=== PATIENT | female | born 1955 | race Caucasian/White ===

== ENCOUNTER 2021-09-12 13:31 | Observation (INO) | payer OTHER ==
--- OUTSIDE RECORDS SUMMARY | 2021-09-12 13:33 | XMS REPORT | Continuity of Care Document ---
:1955 Author Organization [facility] t Address [address] [place] [address] Care Team Providers Name Role Phone Nurse, Pob Immunization Attending Clinician Unavailable Carmelo Cardenas DO Attending Clinician Problems This patient has no known problems. Allergies, Adverse Reactions, Alerts This patient has no known allergies or adverse reactions. Social History Social Habit Start Date Stop Date Quantity Comments Source Sex Assigned At [birth year] [facility] 00:00:00 00:00:00 Medical Branch Smoking Status Start Date Stop Date Source Unknown if ever smoked [facility] Medications This patient has no known medications. Immunizations Ordered Filled Immunization Date Status Comments Sourc e Immunization Name Name SARS-COV-2 COVID-19 2021-03-07 Completed Unive rs[facility] of [facility] VACCINE 00:00:00 [place] [facility] Procedures Procedure Date / Time Performed Performing Clinician Sourc e SARS-COV-2 COVID-19 2021-03-07 18:02:08 Doctor Unassigned, No [facility] [place] VACCINE,0.5ML,IM Name Medical Branch ([facility]) Encounters Start End Encounter Admission Attending Care Care Encounter Source Date/Time Date/Time Type Type Clinicians Facility Department ID 2021-03-07 2021-03-07 Imm/Inj Nurse, Adc Pob Immunization [facility] [id number] [facility] 12:58:57 12:59:11 Visit Roel Cardenas [id number] ity [place] [id number] [facility] [phone] [facility] dical n[facility] [address] Results This patient has no known results.
[2021-09-12] MEDS ORDERED: MORPHINE 4 MG/ML SYR ONE ×2 (14:30→16:30)
[2021-09-12] MEDS ORDERED: CEFTRIAXONE 1000 MG/VIAL ONE (14:30)
[2021-09-12] MEDS ORDERED: ONDANSETRON 4 MG/2 ML VIAL ONE (14:30)
[2021-09-12] MEDS ORDERED: NA CHLORIDE 0.9% 1,000 ML ONE ×2 (14:31→16:30)
[2021-09-12] MEDS ORDERED: NA CHLORIDE 0.9% 50 ML ONE (14:31)
[2021-09-12 14:33] LABS: Absolute Lymphocytes (CBC) 1.5 K/uL (0.7-4.9); Hematocrit 39.3 % (36.0-45.0); Lymphocytes % 30.1 % (15.3-44.8); RBC Red Blood Cell Count 4.31 M/uL (3.86-4.86)
[2021-09-12 14:34] LABS: Protime INR 1.14
[2021-09-12 14:48] LABS: Albumin 3.9 g/dL (3.4-5.0); Bilirubin Direct 0.1 mg/dL (0-0.2); Bilirubin Total 0.6 mg/dL (0.2-1.0); Magnesium 2.4 mg/dL (1.8-2.4); Potassium 3.6 mmol/L (3.5-5.1); Protein, Total 8.4 g/dL (6.4-8.2); Troponin High Sensitivity 3.9 pg/mL (<58.9)
--- NOTE | 2021-09-12 14:56 | RAD REPORT ---
EXAM DESCRIPTION: RAD - Chest Single View - 09/12/2021 2:43 pm CLINICAL HISTORY: ABDOMINAL DISTENTION COMPARISON: Two view chest January 2014 TECHNIQUE: AP portable chest image was obtained 09/12/2021 2:43 pm . FINDINGS: Lungs are clear. Heart and vasculature are normal. No measurable pleural effusion and no p neumothorax. No acute bony abnormality seen. No acute aortic findings suspected. IMPRESSION: No acute cardiopulmonary process. No significant change from comparison study.
--- NOTE | 2021-09-12 15:21 | RAD REPORT ---
EXAM DESCRIPTION: CT - Abdomen Pelvis W Contrast - 09/12/2021 3:08 pm CLINICAL HISTORY: ABD PAIN COMPARISON: No comparisons TECHNIQUE: Biphasic, helical CT imaging of the abdomen and pelvis was performed following 100 ml non -ionic IV contrast. No oral contrast administered. All CT scans are performed using dose optimization technique as appropriate and may include automated exposure control or mA/KV adjustment according to patient size. FINDINGS: No suspicious findings in the lung bases. The liver, spleen, and pancreas show no suspicious findings. Multiple gallstones are seen but no acut e gallbladder abnormality noted. No biliary tree dilatation. Symmetric renal function is seen with no hydronephrosis or suspicious renal mass. No pyelonephritis o r acute parenchymal process. No bladder abnormalities. No adrenal abnormalities. Enlarged lobulated u terus is present containing multiple densely calcified fibroids, largest measuring 5 cm. No ovarian a cute finding seen. No fallopian tube dilatation. No stomach or small bowel abnormality. No direct or indirect evidence for appendicitis. From cecum th rough descending colon no acute colon process is seen. Proximal sigmoid colon shows short segment of circumferential wall thickening. There is trace amount of stranding in the adjacent fat. A very early diverticulitis is suspected and needs correlation with left lower quadrant symptoms. Rectum and brittany ining portion of the sigmoid are unremarkable. No free air, free fluid or inflammatory stranding. No hernia, mass or bulky lymphadenopathy. No suspicious bony findings. IMPRESSION: Suspected early diverticulitis of the proximal sigmoid colon. Cholelithiasis without acute gallbladder or biliary tree finding.
--- NOTE | 2021-09-12 15:49 | RAD REPORT ---
EXAM DESCRIPTION: US - Abdomen Exam Limited - 09/12/2021 3:40 pm CLINICAL HISTORY: ABD PAIN COMPARISON: Abdomen Pelvis W Contrast dated 09/12/2021 FINDINGS: Multiple 12-15 mm sized mobile gallstones are seen. No measurable quantity of sludge. Ther e is no wall thickening or pericholecystic fluid. No common duct stone or biliary tree dilatation identified. IMPRESSION: Multi stone cholelithiasis without cholecystitis findings or acute biliary finding.
[2021-09-12] MEDS ORDERED: METRONIDAZOLE 500mg IVPB 500 MG/100 ML BAG IV ONE (15:56)
[2021-09-12] MEDS ORDERED: CIPROFLOXACIN 400mg IV 400 MG/200 ML BAG IV ONE (15:56)
--- NOTE | 2021-09-12 16:05 | ER ---
Nurse's Notes [facility] Name: Fior Flynn Age: 66 yrs Sex: Female : 1955 Arrival Date: 09/12/2021 Time: 13:36 Bed Ultrasound Private MD: Lalo Méndez Diagnosis: Abdominal tenderness;Diarrhea, unspecified;Nausea;Other cholelithiasis without obstruction;Diverticulitis of large intestine without perforation or abscess without bleeding Presentation: 09/12 13:48 Chief complaint: Patient states: i have severe abdminal pain that started 4 am tw2 . my stomach was bloated and its pretty severe. tender to the touch. +D. Coronavirus screen: At this time, the client does not indicate any symptoms associated with coronavirus-19. Ebola Screen: Patient denies travel to an Ebola-affected area in the 21 days before illness onset. Initial Sepsis Screen: Does the patient meet any 2 criteria? No. Patient's initial sepsis screen is negative. Does the patient have a suspected source of infection? No. Patient's initial sepsis screen is negative. Risk Assessment: Do you want to hurt yourself or someone else? Patient reports no desire to harm self or others. Onset of symptoms was September 12, 2021. 13:48 Method Of Arrival: Ambulatory tw2 13:48 Acuity: ARIA 3 tw2 Triage Assessment: 13:49 General: Appears in no apparent distress. uncomfortable, well groomed, Behavior is tw2 calm, cooperative, appropriate for age. Pain: Complains of pain in right lower quadrant and left lower quadrant. GI: Reports upper abdominal pain, bloating, diarrhea. Historical: - Allergies: 13:49 No Known Allergies; tw2 - Home Meds: 13:49 Synthroid 50 mcg Oral tab 1 tab once daily [Active]; Lexapro 20 mg Oral tab 1 tab once tw2 daily [Active]; - PMHx: 13:49 Hypothyroidism; tw2 - PSHx: 13:49 section; ectopic ; Appendectomy; tw2 - Immunization history:: Client reports receiving the 2nd dose of the Covid vaccine. - Social history:: Smoking status: Patient denies any tobacco usage or history of. Patient uses alcohol, occasionally. Screenin:15 Abuse screen: Denies threats or abuse. Denies injuries from another. Nutritional jl7 screening: No deficits noted. Tuberculosis screening: No symptoms or risk factors identified. Fall Risk IV access (20 points). Total Beck Fall Scale indicates No Risk (0-24 pts). Assessment: 14:15 General: Appears in no apparent distress. uncomfortable, Behavior is calm, cooperative, jl7 appropriate for age. Pain: Complains of pain in right lower quadrant and left lower quadrant Pain currently is 8 out of 10 on a pain scale. Neuro: Level of Consciousness is awake, alert, obeys commands, Oriented to person, place, time, situation. Cardiovascular: Patient's skin is warm and dry. Respiratory: Airway is patent Respiratory effort is even, unlabored, Respiratory pattern is regular, symmetrical. GI: Abdomen is non-distended, Abdomen is tender to palpation in right lower quadrant and left lower quadrant. : No signs and/or symptoms were reported regarding the genitourinary system. Derm: Skin is pink, warm \T\ dry. 15:15 Reassessment: Patient appears in no apparent distress at this time. pt reports jl7 decreased pain. 16:00 Reassessment: Patient appears in no apparent distress at this time. No changes from jl7 previously documented assessment. Patient and/or family updated on plan of care and expected duration. Pain level reassessed. Patient is alert, oriented x 3, equal unlabored respirations, skin warm/dry/pink. 17:00 Reassessment: Patient appears in no apparent distress at this time. No changes from jl7 previously documented assessment. Patient and/or family updated on plan of care and expected duration. Pain level reassessed. Patient is alert, oriented x 3, equal unlabored respirations, skin warm/dry/pink. 18:00 Reassessment: Patient appears in no apparent distress at this time. Patient and/or jl7 family updated on plan of care and expected duration. Pain level reassessed. Patient is alert, oriented x 3, equal unlabored respirations, skin warm/dry/pink. Patient states feeling better. Patient states symptoms have improved. Vital Signs: 13:48 BP 140 / 91; Pulse 89; Resp 17; Temp 98.5(TE); Pulse Ox 100% on R/A; Weight 71.21 kg tw2 (R); Height 5 ft. 8 in. (172.72 cm); Pain 8/10; 15:00 BP 147 / 104; Pulse 63; Resp 15; Pulse Ox 97% ; jl7 16:40 BP 175 / 93; Pulse 64; Resp 15; Pulse Ox 100% ; jl7 17:22 BP 167 / 92; Pulse 58; Resp 15; Pulse Ox 100% ; jl7 18:17 BP 157 / 90; Pulse 57; Resp 15; Pulse Ox 100% ; jl7 13:48 Body Mass Index 23.87 (71.21 kg, 172.72 cm) tw2 ED Course: 13:36 Patient arrived in ED. am2 13:36 Lalo Méndez MD is Private Physician. am2 13:49 Triage completed. tw2 13:51 Arm band placed on. tw2 13:52 Kuldeep Delgado MD is Attending Physician. ayesha 14:02 Mary Gregg, BEN is Primary Nurse. jl7 14:15 Patient has correct armband on for positive identification. Placed in gown. Bed in low jl7 position. Call light in reach. Side rails up X 1. nurse monitoring on. Pulse ox on. NIBP on. Warm blanket given. 14:20 Initial lab(s) drawn, by sd, sent to lab. EKG done, by ED staff, reviewed by Kuldeep Delgado MD. Inserted saline lock: 20 gauge in left forearm, using aseptic technique. Blood collected. 14:45 XRAY Chest (1 view) In Process Unspecified. EDMS 15:10 CT Abd/Pelvis - IV Contrast Only In Process Unspecified. EDMS 15:41 US Abdomen Limited In Process Unspecified. EDMS 15:55 Lalo Méndez MD is Hospitalizing Provider. [facility] 16:30 COVID swab sent to lab. jl7 16:43 Urine collected: clean catch specimen, clear. jl7 17:22 No provider procedures requiring assistance completed. Patient admitted, IV remains in jl7 place. intact, No redness/swelling at site. Administered Medications: 14:45 Drug: NS 0.9% 1000 ml Route: IV; Rate: 1 bolus; Site: left forearm; jl7 16:00 Follow up: Response: No adverse reaction; IV Status: Completed infusion; IV Intake: jl7 1000ml 14:50 Drug: morphine 4 mg Route: IVP; Site: left forearm; jl7 15:15 Follow up: Response: No adverse reaction; Pain is decreased jl7 14:50 Drug: Zofran (Ondansetron) 4 mg Route: IVP; Site: left forearm; jl7 15:15 Follow up: Response: No adverse reaction; Nausea is decreased jl7 14:55 Drug: Rocephin (cefTRIAXone) 2 grams Route: IV; Rate: per protocol; Site: left forearm; jl7 15:15 Follow up: Response: No adverse reaction; IV Status: Completed infusion; IV Intake: 82lhab2 16:00 Drug: Flagyl (metroNIDAZOLE) 500 mg Volume: 100 ml; Route: IVPB; Rate: 200 ml/hr; jl7 Infused Over: 30 mins; Site: left forearm; 16:30 Follow up: Response: No adverse reaction; IV Status: Completed infusion; IV Intake: jl7 100ml 16:32 Drug: morphine 4 mg Route: IVP; Site: left forearm; jl7 17:00 Follow up: Response: No adverse reaction; Pain is decreased jl7 16:38 Drug: Cipro (ciprofloxacin) 400 mg Volume: 200 ml; Route: IVPB; Infused Over: 60 mins; jl7 Site: left forearm; 17:38 Follow up: Response: No adverse reaction; IV Status: Completed infusion; IV Intake: jl7 200ml 17:00 Drug: NS 0.9% 1000 ml Route: IV; Rate: 125 ml/hr; Site: left forearm; jl7 17:19 Follow up: Response: No adverse reaction; IV Status: Infusion continued upon admission jl7 Intake: 15:15 IV: 50ml; Total: 50ml. jl7 16:00 IV: 1000ml; Total: 1050ml. jl7 16:30 IV: 100ml; Total: 1150ml. jl7 17:38 IV: 200ml; Total: 1350ml. jl7 Outcome: 16:04 Decision to Hospitalize by Provider. ayesha 18:18 Admitted to Tele accompanied by tech, via wheelchair, room 230, with chart, Report jl7 called to BEN Wang 18:18 Condition: stable 18:18 Discharge instructions given to patient, family, Instructed on the need for admit, Demonstrated understanding of instructions. 18:41 Patient left the ED. jl7 Signatures: Dispatcher [employer] Kuldeep Wade MD MD cha Wise, Tara, RN RN tw2 Mary Gregg RN RN jl7 Zohra Moore am2
--- NOTE | 2021-09-12 16:05 | EDPHYS ---
Physician Documentation [facility] Name: Fior Flynn Age: 66 yrs Sex: Female : 1955 Arrival Date: 09/12/2021 Time: 13:36 Bed Ultrasound Private MD: Lalo Méndez ED Physician Kuldeep Delgado HPI: 09/12 14:44 This 66 yrs old Female presents to ER via Ambulatory with complaints of ayesha Abdominal Pain, Diarrhea. Historical: - Allergies: 13:49 No Known Allergies; tw2 - Home Meds: 13:49 Synthroid 50 mcg Oral tab 1 tab once daily [Active]; Lexapro 20 mg Oral tab 1 tab once tw2 daily [Active]; - PMHx: 13:49 Hypothyroidism; tw2 - PSHx: 13:49 section; ectopic ; Appendectomy; tw2 - Immunization history:: Client reports receiving the 2nd dose of the Covid vaccine. - Social history:: Smoking status: Patient denies any tobacco usage or history of. Patient uses alcohol, occasionally. ROS: 14:46 Constitutional: Negative for fever, chills, and weight loss, Eyes: Negative for injury, ayesha pain, redness, and discharge, ENT: Negative for injury, pain, and discharge, Neck: Negative for injury, pain, and swelling, Cardiovascular: Negative for chest pain, palpitations, and edema, Respiratory: Negative for shortness of breath, cough, wheezing, and pleuritic chest pain, Back: Negative for injury and pain, : Negative for injury, bleeding, discharge, and swelling, MS/Extremity: Negative for injury and deformity, Skin: Negative for injury, rash, and discoloration, Neuro: Negative for headache, weakness, numbness, tingling, and seizure, Psych: Negative for depression, anxiety, suicide ideation, homicidal ideation, and hallucinations, Allergy/Immunology: Negative for hives, rash, and allergies, Endocrine: Negative for neck swelling, polydipsia, polyuria, polyphagia, and marked weight changes, Hematologic/Lymphatic: Negative for swollen nodes, abnormal bleeding, and unusual bruising. 14:46 Abdomen/GI: Positive for abdominal pain, nausea, diarrhea. Exam: 14:46 Constitutional: This is a well developed, well nourished patient who is awake, alert, ayesha and in no acute distress. Head/Face: Normocephalic, atraumatic. Eyes: Pupils equal round and reactive to light, extra-ocular motions intact. Lids and lashes normal. Conjunctiva and sclera are non-icteric and not injected. Cornea within normal limits. Periorbital areas with no swelling, redness, or edema. ENT: Nares patent. No nasal discharge, no septal abnormalities noted. Tympanic membranes are normal and external auditory canals are clear. Oropharynx with no redness, swelling, or masses, exudates, or evidence of obstruction, uvula midline. Mucous membranes moist. Neck: Trachea midline, no thyromegaly or masses palpated, and no cervical lymphadenopathy. Supple, full range of motion without nuchal rigidity, or vertebral point tenderness. No Meningismus. Chest/axilla: Normal chest wall appearance and motion. Nontender with no deformity. No lesions are appreciated. Cardiovascular: Regular rate and rhythm with a normal S1 and S2. No gallops, murmurs, or rubs. Normal PMI, no JVD. No pulse deficits. Respiratory: Lungs have equal breath sounds bilaterally, clear to auscultation and percussion. No rales, rhonchi or wheezes noted. No increased work of breathing, no retractions or nasal flaring. Back: No spinal tenderness. No costovertebral tenderness. Full range of motion. Female : Normal external genitalia. Skin: Warm, dry with normal turgor. Normal color with no rashes, no lesions, and no evidence of cellulitis. MS/ Extremity: Pulses equal, no cyanosis. Neurovascular intact. Full, normal range of motion. Neuro: Awake and alert, GCS 15, oriented to person, place, time, and situation. Cranial nerves II-XII grossly intact. Motor strength 5/5 in all extremities. Sensory grossly intact. Cerebellar exam normal. Normal gait. Psych: Awake, alert, with orientation to person, place and time. Behavior, mood, and affect are within normal limits. 14:46 Abdomen/GI: Inspection: abdomen appears normal, Bowel sounds: normal, Palpation: mild abdominal tenderness, Liver: no appreciated palpable abnormalities, Hernia: not appreciated. 14:54 ECG was reviewed by the Attending Physician. [facility] Vital Signs: 13:48 BP 140 / 91; Pulse 89; Resp 17; Temp 98.5(TE); Pulse Ox 100% on R/A; Weight 71.21 kg tw2 (R); Height 5 ft. 8 in. (172.72 cm); Pain 8/10; 15:00 BP 147 / 104; Pulse 63; Resp 15; Pulse Ox 97% ; jl7 16:40 BP 175 / 93; Pulse 64; Resp 15; Pulse Ox 100% ; jl7 17:22 BP 167 / 92; Pulse 58; Resp 15; Pulse Ox 100% ; jl7 18:17 BP 157 / 90; Pulse 57; Resp 15; Pulse Ox 100% ; jl7 13:48 Body Mass Index 23.87 (71.21 kg, 172.72 cm) tw2 MDM: 13:52 Patient medically screened. [facility] 14:51 Differential diagnosis: Nonspecific abd pain, gastritis, cholecystitis, pancreatitis, ayesha diverticulitis, viral gastroenteritis, gastroenteritis. Data reviewed: vital signs, nurses notes, lab test result(s), EKG, radiologic studies, CT scan, plain films, ultrasound. Data interpreted: monitor tech: rate is 89 beats/min, rhythm is regular, Pulse oximetry: on room air is 100 %. Test interpretation: by ED physician or midlevel provider: ECG, plain radiologic studies. Counseling: I had a detailed discussion with the patient and/or guardian regarding: the historical points, exam findings, and any diagnostic results supporting the discharge/admit diagnosis, lab results, radiology results. 09/12 13:54 Order name: Basic Metabolic Panel; Complete Time: 15:21 [facility] 09/12 13:54 Order name: CBC with Diff; Complete Time: 15:21 [facility] 09/12 13:54 Order name: LFT's; Complete Time: 15:21 [facility] 09/12 13:54 Order name: Magnesium; Complete Time: 15:21 [facility] 09/12 13:54 Order name: NT PRO-BNP; Complete Time: 15:21 [facility] 09/12 13:54 Order name: PT-INR; Complete Time: 15:21 [facility] 09/12 13:54 Order name: Troponin HS; Complete Time: 15:21 [facility] 09/12 13:54 Order name: Lipase; Complete Time: 15:21 [facility] 09/12 13:54 Order name: Lactate; Complete Time: 15:21 [facility] 09/12 15:22 Order name: Fecal Leukocyte Stain 09/12 15:22 Order name: Occult Blood [facility] 09/12 15:22 Order name: Stool Culture [facility] 09/12 16:05 Order name: COVID-19 SARS RT PCR (Document "Date of Onset" if Symptomatic) 09/12 18:31 Order name: Urine Dipstick-Ancillary [facility] 09/12 13:54 Order name: XRAY Chest (1 view); Complete Time: 15:21 [facility] 09/12 13:54 Order name: EKG; Complete Time: 13:55 [facility] 09/12 13:54 Order name: Cardiac monitoring; Complete Time: 14:07 [facility] 09/12 13:54 Order name: EKG - Nurse/Tech; Complete Time: 14:07 [facility] 09/12 13:54 Order name: IV Saline Lock; Complete Time: 14:30 [facility] 09/12 13:54 Order name: Labs collected and sent; Complete Time: 14:30 [facility] 09/12 13:54 Order name: CT Abd/Pelvis - IV Contrast Only; Complete Time: 15:36 [facility] 09/12 14:45 Order name: US Abdomen Limited [facility] 09/12 13:54 Order name: O2 Per Protocol; Complete Time: 14:29 [facility] 09/12 13:54 Order name: O2 Sat Monitoring; Complete Time: 14:29 [facility] 09/12 13:54 Order name: Urine Dipstick-Ancillary (obtain specimen); Complete Time: 18:31 [facility] EC:54 Rate is 72 beats/min. Rhythm is regular. QRS [place] is Normal. [place] interval is normal. QRS ayesha interval is normal. QT interval is normal. No Q waves. T waves are Normal. No ST changes noted. Clinical impression: NSR w/ Non-specific ST/T Changes and No evidence of ischemia. Interpreted by me. Reviewed by me. Administered Medications: 14:45 Drug: NS 0.9% 1000 ml Route: IV; Rate: 1 bolus; Site: left forearm; jl7 16:00 Follow up: Response: No adverse reaction; IV Status: Completed infusion; IV Intake: jl7 1000ml 14:50 Drug: morphine 4 mg Route: IVP; Site: left forearm; jl7 15:15 Follow up: Response: No adverse reaction; Pain is decreased jl7 14:50 Drug: Zofran (Ondansetron) 4 mg Route: IVP; Site: left forearm; jl7 15:15 Follow up: Response: No adverse reaction; Nausea is decreased jl7 14:55 Drug: Rocephin (cefTRIAXone) 2 grams Route: IV; Rate: per protocol; Site: left forearm; jl7 15:15 Follow up: Response: No adverse reaction; IV Status: Completed infusion; IV Intake: [id number] 16:00 Drug: Flagyl (metroNIDAZOLE) 500 mg Volume: 100 ml; Route: IVPB; Rate: 200 ml/hr; jl7 Infused Over: 30 mins; Site: left forearm; 16:30 Follow up: Response: No adverse reaction; IV Status: Completed infusion; IV Intake: jl7 100ml 16:32 Drug: morphine 4 mg Route: IVP; Site: left forearm; jl7 17:00 Follow up: Response: No adverse reaction; Pain is decreased jl7 16:38 Drug: Cipro (ciprofloxacin) 400 mg Volume: 200 ml; Route: IVPB; Infused Over: 60 mins; jl7 Site: left forearm; 17:38 Follow up: Response: No adverse reaction; IV Status: Completed infusion; IV Intake: jl7 200ml 17:00 Drug: NS 0.9% 1000 ml Route: IV; Rate: 125 ml/hr; Site: left forearm; jl7 17:19 Follow up: Response: No adverse reaction; IV Status: Infusion continued upon admission jl7 Disposition Summary: 09/12/21 16:04 Hospitalization Ordered Hospitalization Status: Observation ayesha Provider: Lalo Méndez cha [facility] ayesha Condition: Fair ayesha Problem: new ayesha Symptoms: have improved ayesha Bed/Room Type: Standard ayesha Room Assignment: 230(09/12/21 17:41) bd Diagnosis - Abdominal tenderness ayesha - Diarrhea, unspecified ayesha - Nausea ayesha - Other cholelithiasis without obstruction ayesha - Diverticulitis of large intestine without perforation or abscess without bleeding ayesha Forms: - Medication Reconciliation Form ayesha - SBAR form ayesha Signatures: Dispatcher [employer] EDMS Merlyn Alba Diana, RN RN Kuldeep Dave MD MD cha Wise, Tara RN RN tw2 Mary Gregg RN RN jl7 Corrections: (The following items were deleted from the chart) 17:28 16:04 ayesha dw 17:28 17:28 218 dw bd 17:41 17:28 218 bd bd
[2021-09-12 18:30] LABS: Urine Blood Negative (Negative); Urine Glucose Negative (Negative); Urine Protein Negative (Negative); Urine Specific Gravity <=1.005 (1.005-1.030)
[2021-09-12 19:37] VITALS: O2SAT 100
[2021-09-12] MEDS ORDERED: MORPHINE 4 MG/ML SYR IV PRN (19:51)
[2021-09-12] MEDS ORDERED: ONDANSETRON 4 MG/2 ML VIAL IV PRN (19:51)
[2021-09-12] MEDS: METRONIDAZOLE 500mg IVPB 500 MG/100 ML BAG IV SCH (19:51)
[2021-09-12] MEDS ORDERED: ACETAMINOPHEN 500 MG TAB PO PRN (19:51)
[2021-09-12 23:00] VITALS: BMI 23.7
[2021-09-12] MEDS: D5 0.45 NS 1,000 ML IV SCH (23:07)
[2021-09-12] MEDS: FAMOTIDINE 20 MG/2 ML VIAL IV SCH (23:12)
[2021-09-13] MEDS: METRONIDAZOLE 500mg IVPB 500 MG/100 ML BAG IV SCH ×3 (00:32→11:20)
[2021-09-13] MEDS: CIPROFLOXACIN 400mg IV 400 MG/200 ML BAG IV SCH ×2 (03:48→15:14)
[2021-09-13 05:23] LABS: Absolute Lymphocytes (CBC) 1.9 K/uL (0.7-4.9); Hematocrit 32.6 % (36.0-45.0); Lymphocytes % 40.5 % (15.3-44.8); MPV 8.5 fL (7.6-11.3); RBC Red Blood Cell Count 3.59 M/uL (3.86-4.86)
[2021-09-13 05:49] LABS: ALT/SGPT 15 U/L (12-78); AST/SGOT 11 U/L (15-37); Albumin 2.9 g/dL (3.4-5.0); Alkaline Phosphatase 62 U/L (45-117); BUN Blood Urea Nitrogen 7 mg/dL (7-18); Bicarbonate 27 mmol/L (21-32); Bilirubin Total 0.4 mg/dL (0.2-1.0); Glucose Level 123 mg/dL (74-106); Lipase 96 U/L (73-393); Potassium 3.5 mmol/L (3.5-5.1); Protein, Total 6.5 g/dL (6.4-8.2); Sodium Level 138 mmol/L (136-145)
[2021-09-13 05:51] LABS: Bilirubin Direct < 0.1 mg/dL (0-0.2)
[2021-09-13] MEDS ORDERED: PNEUMOCOCCAL VACCINE 0.5 ML IMVAC ONE (08:00)
[2021-09-13] MEDS ORDERED: INFLUENZA VACCINE (for 6+ mo) 0.5 ML DOSE IMVAC ONE (08:00)
[2021-09-13] MEDS: FAMOTIDINE 20 MG/2 ML VIAL IV SCH (09:18)
[2021-09-13] MEDS: D5 0.45 NS 1,000 ML IV SCH (09:23)
--- NOTE | 2021-09-13 12:35 | EKG ---
Test Date: 2021-09-12 Test Time: 14:02:31 Auto Dealer: AKSHAT MEASUREMENT RESULTS: Intervals: Rate: 72 KS: 162 QRSD: 76 QT: 380 QTc: 416 [place]: P: 42 KS: 162 QRS: 27 T: 15 INTERPRETIVE STATEMENTS: Normal sinus rhythm Anteroseptal infarct, age undetermined Abnormal ECG No previous ECG available for comparison Electronically Signed On 09-13-21 12:33:18 CDT by Hi Cordero
[2021-09-13 16:41] VITALS: BP 135/58; TEMP 99.1
--- NOTE | 2021-09-13 20:57 | PN ---
24-hour short term stay. The patient presented to the emergency room following a three and a half day period of abdominal pain , distention, nausea, vomiting, and diarrhea. Office consultation suggested the ER for CAT scan, the possibility of diverticulitis and the fact this was brought out on her CAT scan. She was quite dry, started on IV fluids, Flagyl, Cipro, and Zofran. Showed marked improvement in 24 hours. Tolerated liquids after being n.p.o. Lab work was stable. Vital signs were stable. On the other fact, it was gallbladder with stones; however, she states she has no GI symptoms and eats what she wants, so this will be addressed at a later date. She felt well enough to be discharged, gradually increasing her l iquids to soft diet consisting of Pedialyte and/or Gatorade as her is undergoing some cancer treatments in [place] in the morning. She will follow up with me next week. Final Diagnoses: Acute diverticulitis, dehydration, cholelithiasis. HR/MODL Voice ID: [id number] Report ID: [id number]
== END 2021-09-13 17:30 | disposition home or self-care (01) ==
LOC: ER 13:31 → ERHOLD 16:08 → 2ND 18:13
PROVIDERS: ADMIT Family Medicine; ATTEND Family Medicine
DX: K57.92 Diverticulitis of intestine, part unspecified, without perforation or abscess without bleeding (principal); E86.0 Dehydration; K80.20 Calculus of gallbladder without cholecystitis without obstruction; E03.9 Hypothyroidism, unspecified; Z20.822 Contact with and (suspected) exposure to COVID-19
CPT/HCPCS: 96365; 96367; 96361; 93005; 85025 ×2; 80048 ×2; 36415; 83735; 85610; 80076 ×2; 83605; 81003; 84484; 83690 ×2; 83880; 74177; 71045; 76705; 96375; 99285; U0003; Q9967; J7799 ×2; J7030 ×2; J2405; J0744 ×3; G0378 ×2

== ENCOUNTER 2023-02-04 05:12 | Emergency (ER) | payer OTHER ==
[2023-02-04] MEDS ORDERED: PROMETH/COD 6.25/10MG SYRUP 5ML ONE (06:20)
[2023-02-04] MEDS ORDERED: ACETAMINOPHEN 500 MG TAB ONE (06:26)
--- NOTE | 2023-02-04 07:40 | ER ---
Nurse's Notes [facility] Name: Fior Flynn Age: 67 yrs Sex: Female : 1955 Arrival Date: 02/04/2023 Time: 05:12 Bed 7 Private MD: Diagnosis: COVID-19 Presentation: 02/04 05:28 Chief complaint: Patient states: nonproductive cough, congestion, headache and fever of pf1 highest temp of 103.3F,onset 3 days. Patient stated did an at home test for Covid that was negative. Patient stated has been alternating tylenol and ibuprofen at home. 05:28 Coronavirus screen: Vaccine status: Patient reports receiving the 2nd dose of the covid pf1 vaccine. 4 doses of Moderna Client denies travel out of the [place] in the last 14 days. Coronavirus screen: Client presents with at least one sign or symptom that may indicate coronavirus-19. Standard/surgical mask placed on the client. Ebola Screen: Patient negative for fever greater than or equal to 101.5 degrees Fahrenheit, and additional compatible Ebola Virus Disease symptoms. Initial Sepsis Screen: Does the patient meet any 2 criteria? No. Patient's initial sepsis screen is negative. Does the patient have a suspected source of infection? No. Patient's initial sepsis screen is negative. Risk Assessment: Do you want to hurt yourself or someone else? Patient reports no desire to harm self or others. 05:28 Method Of Arrival: Ambulatory pf1 05:28 Acuity: ARIA 3 pf1 06:27 Onset of symptoms was January 31, 2023. [facility] Triage Assessment: 06:26 General: Appears in no apparent distress. uncomfortable, Behavior is calm, cooperative. 7 Historical: - Allergies: 05:50 No Known Allergies; pf1 - PMHx: 05:50 Hypothyroidism; Anxiety; gallstones; pf1 - PSHx: 05:50 Appendectomy; section; ectopic ; pf1 - Immunization history:: Adult Immunizations up to date, Last tetanus immunization: > 10 years ago Flu vaccine is up to date. - Social history:: Smoking status: Patient denies any tobacco usage or history of. Patient uses alcohol, occasionally. Patient/guardian denies using street drugs. Screenin:26 [facility] ED Fall Risk Assessment (Adult) History of falling in the last 3 months, jw7 including since admission No falls in past 3 months (0 pts) Score/Fall Risk Level 0 - 2 = Low Risk. Abuse screen: Denies threats or abuse. Denies injuries from another. Nutritional screening: No deficits noted. Tuberculosis screening: No symptoms or risk factors identified. Assessment: 06:23 Reassessment: Patient appears in no apparent distress at this time. Patient and/or jw7 family updated on plan of care and expected duration. Pain level reassessed. Patient is alert, oriented x 3, equal unlabored respirations, skin warm/dry/pink. Pain: Denies pain. Vital Signs: 05:28 BP 155 / 86; Pulse 90; Resp 18; Temp 100.4(O); Pulse Ox 98% on R/A; Weight 72.57 kg; pf1 Height 5 ft. 7 in. ; 05:30 BP 140 / 89; Pulse 88; Resp 19 S; Pulse Ox 97% on R/A; jw7 06:00 BP 148 / 79; Pulse 97; Resp 18 S; Pulse Ox 95% on R/A; jw7 06:26 Temp 99.7; jw7 07:11 BP 130 / 79; Pulse 78; Resp 18; Pulse Ox 95% ; ko1 05:28 Body Mass Index 25.06 (72.57 kg, 170.18 cm) pf1 ED Course: 05:20 Patient arrived in ED. kj1 05:28 Star Awan, RN is Primary Nurse. as6 05:28 Judit Rothman MD is Attending Physician. sd2 05:50 Triage completed. pf1 06:13 RSV Sent. jw7 06:13 Flu Sent. jw7 06:13 SARS-COV-2 RT PCR Sent. jw7 06:26 Patient has correct armband on for positive identification. Bed in low position. Call jw7 light in reach. Side rails up X 1. 06:27 Arm band placed on. jw7 07:20 Attending Physician role handed off by Judit Rothman MD sp3 07:20 Saud Gonzalez MD is Attending Physician. sp3 07:49 No provider procedures requiring assistance completed. Patient did not have IV access ko1 during this emergency room visit. 07:49 Provided Education on: NA. ko1 Administered Medications: 06:22 Drug: Acetaminophen PO 1000 mg Route: PO; jw7 06:22 Drug: Promethazine-Codeine PO Liquid (6.25mg - 10mg / 5mL) 5 ml Route: PO; jw7 Medication: 07:49 VIS not applicable for this client. ko1 Outcome: 07:40 Discharge ordered by . sp3 07:49 Discharged to home ambulatory. ko1 07:49 Condition: good 07:49 Discharge instructions given to patient, Instructed on discharge instructions, follow up and referral plans. Demonstrated understanding of instructions, follow-up care. 07:50 Patient left the ED. ko1 Signatures: Christina Roque kj1 Saud Gonzalez MD MD sp3 Star Awan RN RN as6 Analy Hendricks RN RN jw7 Judit Rothman MD MD sd2 Ira Benitez RN RN ko1 Florencia Barajas RN RN pf1
--- NOTE | 2023-02-04 07:40 | EDPHYS ---
Physician Documentation [facility] Name: Fior Flynn Age: 67 yrs Sex: Female : 1955 Arrival Date: 02/04/2023 Time: 05:12 Bed 7 Private MD: ED Physician Saud Gonzalez HPI: 02/04 07:37 This 67 yrs old Female presents to ER via Ambulatory with complaints of Fever, Flu sp3 Symptoms. 07:37 67-year-old female with history of anxiety, gallstones, hypothyroidism comes in to the 3 ED with several days of subjective fever, flu symptoms, body aches. Review of systems negative for any other symptoms including headache, chest pain, shortness of breath, abdominal pain, nausea, vomiting, diarrhea, rash, known sick contacts, travel history, or any other signs or symptoms at this time.. Historical: - Allergies: 05:50 No Known Allergies; pf1 - PMHx: 05:50 Hypothyroidism; Anxiety; gallstones; pf1 - PSHx: 05:50 Appendectomy; section; ectopic ; pf1 - Immunization history:: Adult Immunizations up to date, Last tetanus immunization: > 10 years ago Flu vaccine is up to date. - Social history:: Smoking status: Patient denies any tobacco usage or history of. Patient uses alcohol, occasionally. Patient/guardian denies using street drugs. ROS: 07:37 Eyes: Negative for injury, pain, redness, and discharge, Neck: Negative for injury, sp3 pain, and swelling, Cardiovascular: Negative for chest pain, palpitations, and edema, Respiratory: Negative for shortness of breath, cough, wheezing, and pleuritic chest pain, Abdomen/GI: Negative for abdominal pain, nausea, vomiting, diarrhea, and constipation, Back: Negative for injury and pain, Skin: Negative for injury, rash, and discoloration, Neuro: Negative for headache, weakness, numbness, tingling, and seizure. 07:37 All other systems are negative. Exam: 07:38 Constitutional: This is a well developed, well nourished patient who is awake, alert, sp3 and in no acute distress. Head/Face: Normocephalic, atraumatic. Eyes: Pupils equal round and reactive to light, extra-ocular motions intact. Lids and lashes normal. Conjunctiva and sclera are non-icteric and not injected. Cornea within normal limits. Periorbital areas with no swelling, redness, or edema. ENT: Nares patent. No nasal discharge, no septal abnormalities noted. External auditory canals are clear. Oropharynx with no redness, swelling, or masses, exudates, or evidence of obstruction, uvula midline. Mucous membranes moist. Neck: Trachea midline, no thyromegaly or masses palpated, and no cervical lymphadenopathy. Supple, full range of motion without nuchal rigidity, or vertebral point tenderness. No Meningismus. Chest/axilla: Normal chest wall appearance and motion. Nontender with no deformity. No lesions are appreciated. Cardiovascular: Regular rate and rhythm with a normal S1 and S2. No gallops, murmurs, or rubs. Normal PMI, no JVD. No pulse deficits. Respiratory: Lungs have equal breath sounds bilaterally, clear to auscultation and percussion. No rales, rhonchi or wheezes noted. No increased work of breathing, no retractions or nasal flaring. MS/ Extremity: Pulses equal, no cyanosis. Neurovascular intact. Full, normal range of motion. Neuro: Awake and alert, GCS 15, oriented to person, place, time, and situation. Cranial nerves II-XII grossly intact. Motor strength 5/5 in all extremities. Sensory grossly intact. Cerebellar exam normal. Normal gait. Psych: Awake, alert, with orientation to person, place and time. Behavior, mood, and affect are within normal limits. Vital Signs: 05:28 BP 155 / 86; Pulse 90; Resp 18; Temp 100.4(O); Pulse Ox 98% on R/A; Weight 72.57 kg; pf1 Height 5 ft. 7 in. ; 05:30 BP 140 / 89; Pulse 88; Resp 19 S; Pulse Ox 97% on R/A; jw7 06:00 BP 148 / 79; Pulse 97; Resp 18 S; Pulse Ox 95% on R/A; jw7 06:26 Temp 99.7; jw7 07:11 BP 130 / 79; Pulse 78; Resp 18; Pulse Ox 95% ; ko1 05:28 Body Mass Index 25.06 (72.57 kg, 170.18 cm) pf1 MDM: 05:28 Patient medically screened. sd2 07:38 Data reviewed: vital signs, nurses notes, lab test result(s). ED course: Differential sp3 diagnosis is broad and includes viral syndrome, COVID-19, influenza, among others. Vital signs are normal and patient is in no acute distress. Work-up demonstrates positive COVID-19 and negative other swabs therefore we will treat conservatively.. 02/04 05:50 Order name: SARS-COV-2 RT PCR sd2 02/04 05:50 Order name: Flu sd2 02/04 05:50 Order name: RSV sd2 Administered Medications: 06:22 Drug: Acetaminophen PO 1000 mg Route: PO; jw7 06:22 Drug: Promethazine-Codeine PO Liquid (6.25mg - 10mg / 5mL) 5 ml Route: PO; jw7 Disposition Summary: 02/04/23 07:40 Discharge Ordered Location: Home sp3 Condition: Stable sp3 Diagnosis - COVID-19 sp3 Followup: sp3 - With: Private Physician - When: Upon discharge from the Emergency Department - Reason: Continuance of care Discharge Instructions: - Discharge Summary Sheet sp3 - COVID-19 sp3 Forms: - Medication Reconciliation Form sp3 - Thank You Letter sp3 - Antibiotic Education sp3 - Prescription Opioid Use sp3 - Patient Portal Instructions sp3 - Leadership Thank You Letter sp3 Signatures: Dispatcher [employer] EDSaud Esquivel MD MD sp3 Analy Hendricks, RN RN jw7 Judit Rothman MD MD sd2 Florencia Barajas RN RN pf1
[2023-02-04 08:10] VITALS: O2SAT 95
[2023-02-04 08:11] VITALS: TEMP 99.7
[2023-02-04 08:12] VITALS: BP 130/79
== END 2023-02-04 07:50 | disposition home or self-care (01) ==
LOC: ER 05:12
DX: U07.1 COVID-19 (principal)
CPT/HCPCS: 87635; 87804; 87807; 99283

== ENCOUNTER 2023-09-19 12:34 | Emergency (ER) | payer OTHER ==
[2023-09-19 13:10] LABS: Absolute Eosinophils 0.1 K/uL (0-0.5); Absolute Lymphocytes (CBC) 1.6 K/uL (0.7-4.9); Absolute Monocytes 0.6 K/uL (0.1-1.3); Absolute Neutrophil 3.6 K/uL (1.8-8.0); Basophils % 0.8 % (0-1.3); Eosinophils % 1.8 % (0-4.4); Hematocrit 40.9 % (36.0-45.0); Hemoglobin 13.7 g/dL (12.0-15.0); Lymphocytes % 26.7 % (15.3-44.8); MCH 30.9 pg (27.0-35.0); MCHC 33.4 g/dL (32.0-36.0); MCV 92.3 fL (80-100); MPV 9.4 fL (7.6-11.3); Monocytes % 9.6 % (3.3-12.3); Neutrophils % 61.1 % (41.7-73.7); Platelets 433 thou/uL (152-406); RBC Red Blood Cell Count 4.43 M/uL (3.86-4.86); Red Cell Distribution Width 12.4 % (12.1-15.2); Specific Gravity 1.012 (1.005-1.030); Urine Bilirubin NEGATIVE (Negative); Urine Blood Negative (Negative); Urine Clarity Clear (Clear); Urine Color Light-Yellow (Yellow); Urine Glucose NEGATIVE (Negative); Urine Ketones TRACE (Negative); Urine Microscopic Reflex YN NO UMIC; Urine Nitrite NEGATIVE (Negative); Urine Protein NEGATIVE (Negative); Urine Urobilinogen Normal (Normal); Urine pH 6.5 (5.0-7.0)
[2023-09-19 13:17] LABS: PT Prothrombin Time 12.5 SECONDS (9.5-12.5); Protime INR 1.14
[2023-09-19 13:30] LABS: Albumin 3.9 g/dL (3.4-5.0); Albumin/Globulin Ratio 0.8 (1.1-1.8); Anion Gap 7.7 mEq/L (5.0-15.0); Bilirubin Direct 0.2 mg/dL (0-0.2); Bilirubin Indirect, Calculated 0.8 mg/dL (0.2-0.8); Globulin 4.9 g/dL (2.3-3.5); Magnesium 2.3 mg/dL (1.6-2.4); Potassium 3.7 mEq/L (3.5-5.1); Protein, Total 8.8 g/dL (6.4-8.2); Troponin High Sensitivity 3.6 pg/mL (<58.9)
[2023-09-19] MEDS ORDERED: CEFTRIAXONE 2000 MG/VIAL ONE (13:33)
[2023-09-19] MEDS ORDERED: CIPROFLOXACIN 400mg IV 400 MG/200 ML BAG IV ONE (13:33)
[2023-09-19] MEDS ORDERED: FENTANYL CITR 100 MCG/2 ML ONE (13:33)
[2023-09-19] MEDS ORDERED: METRONIDAZOLE 500mg IVPB 500 MG/100 ML BAG IV ONE (13:33)
[2023-09-19] MEDS ORDERED: ONDANSETRON 4 MG/2 ML VIAL ONE (13:33)
[2023-09-19] MEDS ORDERED: NA CHLORIDE 0.9% 1,000 ML ONE (13:34)
--- NOTE | 2023-09-19 13:58 | RAD REPORT ---
EXAM DESCRIPTION: [facility]/2023 1:37 pm CLINICAL HISTORY: ABDOMINAL DISTENTION COMPARISON: Chest Single View dated 09/12/2021; CHEST PA AND LAT 2 VIEW dated 01/19/2014 TECHNIQUE: Portable AP view of the chest. FINDINGS: The lungs are clear. No pneumothorax or effusion. The cardiomediastinal contours are unre markable. IMPRESSION: No acute cardiopulmonary process.
--- NOTE | 2023-09-19 14:45 | RAD REPORT ---
EXAM DESCRIPTION: CT - Abdomen Pelvis W Contrast - 09/19/2023 2:10 pm CLINICAL HISTORY: ABD PAIN COMPARISON: Abdomen Pelvis W Contrast dated 09/12/2021 TECHNIQUE: Thin cut axial CT imaging of the abdomen and pelvis was performed following intravenous a dministration of 100 mL Isovue 300. Multiplanar reformats were generated and reviewed. All CT scans are performed using dose optimization technique as appropriate and may include automated exposure control or mA/KV adjustment according to patient size. FINDINGS: No suspicious findings in the lung bases. The liver, spleen, adrenal glands, and pancreas show no suspicious findings. Gallbladder shows anupam us cluster containing gallstones. Symmetric renal function is seen with no hydronephrosis or suspicious renal mass. No dilated bowel loops. Distal colonic diverticulosis. Wall thickening, hyperenhancement, and adjacen t fat stranding along a mid sigmoid diverticulum directed inferiorly. No appreciable fluid collection s or extraluminal gas. No free air, free fluid or inflammatory stranding. No hernia, mass or bulky ly mphadenopathy. Retroverted uterus with numerous calcified fibroids. The urinary bladder is without significant findi ng. No suspicious bony findings. Hemangiomata are within vertebral body of L1. IMPRESSION: Acute uncomplicated mid sigmoid diverticulitis. The findings were communicated to Kuldeep Delgado on 09/19/2023 at 14:41 hours.
--- NOTE | 2023-09-19 15:22 | ER ---
Nurse's Notes [facility] Name: Fior Flynn Age: 68 yrs Sex: Female : 1955 Arrival Date: 09/19/2023 Time: 12:34 Bed 16 Private MD: Diagnosis: Abdominal tenderness;Diverticulitis of large intestine without perforation or abscess without bleeding-SIGMOID Presentation: 09/18 12:41 Chief complaint: Patient states: "Dr. Méndez sent me here because he think's I have mb9 Diverticulitis. I've had lower abdominal pain for 4 days". Coronavirus screen: Vaccine status: Patient reports receiving the 2nd dose of the covid vaccine. Ebola Screen: No symptoms or risks identified at this time. Initial Sepsis Screen: Does the patient meet any 2 criteria? No. Patient's initial sepsis screen is negative. Does the patient have a suspected source of infection? No. Patient's initial sepsis screen is negative. Risk Assessment: Do you want to hurt yourself or someone else? Patient reports no desire to harm self or others. Onset of symptoms was September 19, 2023. 12:41 Method Of Arrival: Ambulatory mb9 12:41 Acuity: ARIA 3 mb9 Triage Assessment: 12:43 General: Appears uncomfortable, Behavior is calm, cooperative. Pain: Complains of pain mb9 in abdomen. Neuro: [place] Agitation-Sedation Scale (RASS): 0 - Alert and Calm Level of Consciousness is awake, alert, obeys commands, Oriented to person, place, time, situation, Appropriate for age. Cardiovascular: Patient's skin is warm and dry. Respiratory: Airway is patent Respiratory effort is even, unlabored, Respiratory pattern is regular, symmetrical. GI: Abdomen is round non-distended, Abdomen is tender to palpation in suprapubic area, right lower quadrant and left lower quadrant Patient currently denies diarrhea. GI: Reports nausea. Historical: - Allergies: 12:37 No Known Allergies; mb9 - Home Meds: 12:37 Lexapro 20 mg Oral tab 1 tab once daily [Active]; Synthroid 50 mcg Oral tab 1 tab once mb9 daily [Active]; - PMHx: 12:37 GALLSTONES; Hypothyroidism; Anxiety; mb9 - PSHx: 12:37 Appendectomy; section; ectopic ; mb9 - Immunization history:: Adult Immunizations up to date. - Infectious Disease History:: Denies. - Social history:: Smoking status: Patient denies any tobacco usage or history of. - Family history:: not pertinent. Screenin:48 [facility] ED Fall Risk Assessment (Adult) History of falling in the last 3 months, bp including since admission No falls in past 3 months (0 pts). Abuse screen: Denies threats or abuse. Denies injuries from another. Nutritional screening: No deficits noted. Tuberculosis screening: No symptoms or risk factors identified. Assessment: 12:45 General: SEE TRIAGE NTOE. bp 13:49 Reassessment: Patient appears in no apparent distress at this time. Patient is alert, bp oriented x 3, equal unlabored respirations, skin warm/dry/pink. 15:03 Reassessment: Patient appears in no apparent distress at this time. Patient is alert, bp oriented x 3, equal unlabored respirations, skin warm/dry/pink. Vital Signs: 12:41 BP 138 / 84; Pulse 74; Resp 16; Temp 98.2; Pulse Ox 100% ; Weight 70.31 kg; Height 5 mb9 ft. 7 in. ; Pain 10/10; 13:45 BP 137 / 89; Pulse 67; Resp 16; Pulse Ox 97% ; bp 15:02 BP 145 / 93; Pulse 58; Resp 16; Pulse Ox 100% ; bp 16:14 BP 153 / 84; Pulse 59; Resp 16; Pulse Ox 98% ; bp 12:41 Body Mass Index 24.28 (70.31 kg, 170.18 cm) mb9 12:41 Pain Scale: Adult mb9 ED Course: 12:36 Patient arrived in ED. mg5 12:37 Arm band placed on. mb9 12:39 Dylan Coles DO is Attending Physician. ms3 12:39 Kuldeep Delgado MD is Attending Physician. ms3 12:43 Triage completed. mb9 12:57 Myles Loredo, RN is Primary Nurse. bp 13:00 Inserted saline lock: 20 gauge in left antecubital area, using aseptic technique. Blood bp collected. 13:39 XRAY Chest (1 view) In Process Unspecified. EDMS 13:48 Patient has correct armband on for positive identification. bp 14:12 CT Abd/Pelvis - IV Contrast Only In Process Unspecified. EDMS 15:21 Bernabe Hanna MD is Referral Physician. ayesha 16:14 Provided Education on: N/A. bp 16:14 No provider procedures requiring assistance completed. IV discontinued, intact, bp bleeding controlled, No redness/swelling at site. Pressure dressing applied. Administered Medications: 13:46 Drug: NS 0.9% IV 1000 ml IV at 1 bolus Per protocol; 1000 mL bolus Route: IV; Rate: 1 bp bolus; Site: left antecubital; 16:16 Follow up: IV Status: Completed infusion; IV Intake: 1000ml bp 13:46 Drug: fentaNYL (PF) IVP 25 mcg IVP once Route: IVP; Site: left antecubital; bp 16:16 Follow up: Response: No adverse reaction bp 13:46 Drug: Ondansetron IVP 4 mg IVP once; over 2 minutes Route: IVP; Site: left antecubital; bp 16:16 Follow up: Response: No adverse reaction bp 13:46 Drug: Ciprofloxacin IVPB 400 mg 200 ml IVPB once over 60 mins Volume: 200 ml; Route: bp IVPB; Infused Over: 60 mins; Site: left antecubital; 16:16 Follow up: IV Status: Completed infusion; IV Intake: 200ml bp 13:46 Drug: metroNIDAZOLE IVPB 500 mg 100 ml IVPB at 200 ml/hr once over 30 mins Volume: 100 bp ml; Route: IVPB; Rate: 200 ml/hr; Infused Over: 30 mins; Site: left antecubital; 16:16 Follow up: IV Status: Completed infusion; IV Intake: 100ml bp 13:46 Drug: Rocephin IV 2 grams IV at per protocol once; Given slow IV push per pharmarcy bp instructions Route: IV; Rate: per protocol; Site: left antecubital; 16:16 Follow up: IV Status: Completed infusion; IV Intake: 250ml bp Medication: 12:37 VIS not applicable for this client. mb9 Intake: 16:16 IV: 250ml; Total: 250ml. bp 16:16 IV: 100ml; Total: 350ml. bp 16:16 IV: 200ml; Total: 550ml. bp 16:16 IV: 1000ml; Total: 1550ml. bp Outcome: 15:21 Discharge ordered by . ayesha 16:14 Discharged to home ambulatory, bp 16:14 Condition: stable 16:14 Discharge instructions given to patient, Instructed on discharge instructions, follow up and referral plans. medication usage, Demonstrated understanding of instructions, follow-up care, medications, Prescriptions given X 5 16:17 Patient left the ED. bp Signatures: Dispatcher [employer] EDMS Kuldeep Delgado MD MD cha Peltier, Brian, RN RN bp Dylan Coles DO DO ms3 Bindu Cornejo RN RN mb9 Chely Watt mg5 Corrections: (The following items were deleted from the chart) 12:43 12:41 Pulse 74bpm; Resp 16bpm; Pulse Ox 100%; Temp 98.2F; 70.31 kg; Height 5 ft. 7 in.; mb9 BMI: 24.2; Pain 10, Adult; mb9 13:50 12:45 BP 137 / 89; Pulse 67bpm; Resp 16bpm; Pulse Ox 97%; bp bp
--- NOTE | 2023-09-19 15:22 | EDPHYS ---
Physician Documentation [facility] Name: Fior Flynn Age: 68 yrs Sex: Female : 1955 Arrival Date: 09/19/2023 Time: 12:34 Bed 16 Private MD: ED Physician Kuldeep Delgado HPI: 09/18 15:14 This 68 yrs old Female presents to ER via Ambulatory with complaints of Here ayesha To See Danny Abdominal Pain. 15:14 The patient presents with abdominal pain in the left lower quadrant. Onset: The ayesha symptoms/episode began/occurred 3 day(s) ago. The patient presents to the emergency department with nausea. Onset: The symptoms/episode began/occurred 3 day(s) ago. Possible causes: unknown, flare up of bowel problem. The symptoms are aggravated by nothing. The symptoms are alleviated by remaining still. Associated signs and symptoms: The patient has no apparent associated signs or symptoms. Associated signs and symptoms: none. Modifying factors: The symptoms are alleviated by remaining still, the symptoms are aggravated by movement. Historical: - Allergies: 12:37 No Known Allergies; mb9 - Home Meds: 12:37 Lexapro 20 mg Oral tab 1 tab once daily [Active]; Synthroid 50 mcg Oral tab 1 tab once mb9 daily [Active]; - PMHx: 12:37 GALLSTONES; Hypothyroidism; Anxiety; mb9 - PSHx: 12:37 Appendectomy; section; ectopic ; mb9 - Immunization history:: Adult Immunizations up to date. - Infectious Disease History:: Denies. - Social history:: Smoking status: Patient denies any tobacco usage or history of. - Family history:: not pertinent. ROS: 15:14 Constitutional: Negative for fever, chills, and weight loss, Eyes: Negative for injury, ayesha pain, redness, and discharge, ENT: Negative for injury, pain, and discharge, Neck: Negative for injury, pain, and swelling, Cardiovascular: Negative for chest pain, palpitations, and edema, Respiratory: Negative for shortness of breath, cough, wheezing, and pleuritic chest pain, Back: Negative for injury and pain, : Negative for injury, bleeding, discharge, and swelling, MS/Extremity: Negative for injury and deformity, Skin: Negative for injury, rash, and discoloration, Neuro: Negative for headache, weakness, numbness, tingling, and seizure, Psych: Negative for depression, anxiety, suicide ideation, homicidal ideation, and hallucinations, Allergy/Immunology: Negative for hives, rash, and allergies, Endocrine: Negative for neck swelling, polydipsia, polyuria, polyphagia, and marked weight changes, Hematologic/Lymphatic: Negative for swollen nodes, abnormal bleeding, and unusual bruising, 15:14 Abdomen/GI: Positive for abdominal pain, nausea, of the left lower quadrant, Exam: 15:14 Constitutional: This is a well developed, well nourished patient who is awake, alert, ayesha and in no acute distress. Head/Face: Normocephalic, atraumatic. Eyes: Pupils equal round and reactive to light, extra-ocular motions intact. Lids and lashes normal. Conjunctiva and sclera are non-icteric and not injected. Cornea within normal limits. Periorbital areas with no swelling, redness, or edema. ENT: Nares patent. No nasal discharge, no septal abnormalities noted. Tympanic membranes are normal and external auditory canals are clear. Oropharynx with no redness, swelling, or masses, exudates, or evidence of obstruction, uvula midline. Mucous membranes moist. Neck: Trachea midline, no thyromegaly or masses palpated, and no cervical lymphadenopathy. Supple, full range of motion without nuchal rigidity, or vertebral point tenderness. No Meningismus. Chest/axilla: Normal chest wall appearance and motion. Nontender with no deformity. No lesions are appreciated. Cardiovascular: Regular rate and rhythm with a normal S1 and S2. No gallops, murmurs, or rubs. Normal PMI, no JVD. No pulse deficits. Respiratory: Lungs have equal breath sounds bilaterally, clear to auscultation and percussion. No rales, rhonchi or wheezes noted. No increased work of breathing, no retractions or nasal flaring. Back: No spinal tenderness. No costovertebral tenderness. Full range of motion. Female : Normal external genitalia. Skin: Warm, dry with normal turgor. Normal color with no rashes, no lesions, and no evidence of cellulitis. MS/ Extremity: Pulses equal, no cyanosis. Neurovascular intact. Full, normal range of motion. Neuro: Awake and alert, GCS 15, oriented to person, place, time, and situation. Cranial nerves II-XII grossly intact. Motor strength 5/5 in all extremities. Sensory grossly intact. Cerebellar exam normal. Normal gait. Psych: Awake, alert, with orientation to person, place and time. Behavior, mood, and affect are within normal limits. 15:14 ECG was reviewed by the Attending Physician. 15:14 Abdomen/GI: Inspection: abdomen appears normal, Bowel sounds: normal, Palpation: mild abdominal tenderness, in the left lower quadrant, Liver: no appreciated palpable abnormalities, Hernia: not appreciated, Vital Signs: 12:41 BP 138 / 84; Pulse 74; Resp 16; Temp 98.2; Pulse Ox 100% ; Weight 70.31 kg; Height 5 mb9 ft. 7 in. ; Pain 10/10; 13:45 BP 137 / 89; Pulse 67; Resp 16; Pulse Ox 97% ; bp 15:02 BP 145 / 93; Pulse 58; Resp 16; Pulse Ox 100% ; bp 16:14 BP 153 / 84; Pulse 59; Resp 16; Pulse Ox 98% ; bp 12:41 Body Mass Index 24.28 (70.31 kg, 170.18 cm) mb9 12:41 Pain Scale: Adult mb9 MDM: 12:39 Patient medically screened. ayesha 15:16 Differential diagnosis: Nonspecific abd pain, gastritis, cholecystitis, pancreatitis, ayesha appendicitis, diverticulitis, viral gastroenteritis, gastroenteritis, diverticulitis, gastritis, Mesenteric ischemia or infarction, non-specific abd pain, pancreatitis, Peptic Ulcer Disease, Ureterolithiasis, urinary tract infection. Data reviewed: vital signs, nurses notes, lab test result(s), EKG, radiologic studies. Consideration of Admission/Observation Patient was admitted/placed on observation. Escalation of care including admission/observation considered. I considered the following discharge prescriptions or medication management in the emergency department Medications were administered in the Emergency Department. See MAR. Independent interpretation of the following test(s) in the Emergency Department CT Scan: My interpretation is CT ABD PEL , DIVERTICULITIS. Test considered but Not performed: Ultrasound NO ABD USG. Historians other than the Patient: PT WELL INFORMED. Care significantly affected by the following chronic conditions: GALLSONES, HYPOTHYROID, ANXIETY. Counseling: I had a detailed discussion with the patient and/or guardian regarding the historical points, exam findings, and any diagnostic results supporting the discharge/admit diagnosis, lab results, radiology results, the need for further work-up and treatment in the hospital. 09/18 12:41 Order name: Basic Metabolic Panel; Complete Time: 15:06 [facility] 09/18 12:41 Order name: CBC with Diff; Complete Time: 15:06 [facility] 09/18 12:41 Order name: LFT's; Complete Time: 15:06 [facility] 09/18 12:41 Order name: Magnesium; Complete Time: 15:06 [facility] 09/18 12:41 Order name: NT PRO-BNP; Complete Time: 15:06 [facility] 09/18 12:41 Order name: PT-INR; Complete Time: 15:06 [facility] 09/18 12:41 Order name: Troponin HS; Complete Time: 15:06 [facility] 09/18 12:41 Order name: Urinalysis w/ reflexes [facility] 09/18 12:41 Order name: XRAY Chest (1 view); Complete Time: 15:06 [facility] 09/18 12:41 Order name: CT Abd/Pelvis - IV Contrast Only; Complete Time: 15:06 [facility] 09/18 12:41 Order name: Cardiac monitoring; Complete Time: 12:58 [facility] 09/18 12:41 Order name: EKG - Nurse/Tech; Complete Time: 13:46 [facility] 09/18 12:41 Order name: IV Saline Lock; Complete Time: 13:46 [facility] 09/18 12:41 Order name: Labs collected and sent; Complete Time: 13:46 [facility] 09/18 12:41 Order name: O2 Per Protocol; Complete Time: 12:57 [facility] 09/18 12:41 Order name: O2 Sat Monitoring; Complete Time: 12:57 [facility] EC:14 Rate is 69 beats/min. Rhythm is regular. QRS [place] is Normal. CO interval is normal. QRS ayesha interval is normal. QT interval is normal. No Q waves. T waves are Normal. No ST changes noted. Clinical impression: NSR w/ Non-specific ST/T Changes and No evidence of ischemia. Interpreted by me. Reviewed by me. Administered Medications: 13:46 Drug: NS 0.9% IV 1000 ml IV at 1 bolus Per protocol; 1000 mL bolus Route: IV; Rate: 1 bp bolus; Site: left antecubital; 16:16 Follow up: IV Status: Completed infusion; IV Intake: 1000ml bp 13:46 Drug: fentaNYL (PF) IVP 25 mcg IVP once Route: IVP; Site: left antecubital; bp 16:16 Follow up: Response: No adverse reaction bp 13:46 Drug: Ondansetron IVP 4 mg IVP once; over 2 minutes Route: IVP; Site: left antecubital; bp 16:16 Follow up: Response: No adverse reaction bp 13:46 Drug: Ciprofloxacin IVPB 400 mg 200 ml IVPB once over 60 mins Volume: 200 ml; Route: bp IVPB; Infused Over: 60 mins; Site: left antecubital; 16:16 Follow up: IV Status: Completed infusion; IV Intake: 200ml bp 13:46 Drug: metroNIDAZOLE IVPB 500 mg 100 ml IVPB at 200 ml/hr once over 30 mins Volume: 100 bp ml; Route: IVPB; Rate: 200 ml/hr; Infused Over: 30 mins; Site: left antecubital; 16:16 Follow up: IV Status: Completed infusion; IV Intake: 100ml bp 13:46 Drug: Rocephin IV 2 grams IV at per protocol once; Given slow IV push per pharmarcy bp instructions Route: IV; Rate: per protocol; Site: left antecubital; 16:16 Follow up: IV Status: Completed infusion; IV Intake: 250ml bp Disposition Summary: 09/19/23 15:21 Discharge Ordered Notes: Location: Home ayesha Problem: new ayesha Symptoms: have improved ayesha Condition: Stable ayesha Diagnosis - Abdominal tenderness ayesha - Diverticulitis of large intestine without perforation or abscess without bleeding - [facility] SIGMOID Followup: ayesha - With: Private Physician - When: 2 - 3 days - Reason: Recheck today's complaints, Continuance of care, Re-evaluation by your physician Followup: ayesha - With: Bernabe Hanna MD - When: 2 - 3 days - Reason: Recheck today's complaints, Re-evaluation by your physician Discharge Instructions: - Discharge Summary Sheet ayesha - Abdominal Pain, Adult ayesha - High-Fiber Eating Plan ayesha - Diverticulitis ayesha - Diverticulitis, [id number] ayesha - Abdominal Pain, Adult, [id number] [facility] Forms: - Medication Reconciliation Form [facility] - Thank You Letter ayesha - Antibiotic Education ayesha - Prescription Opioid Use ayesha - Patient Portal Instructions [facility] - Leadership Thank You Letter [facility] Prescriptions: - ondansetron 4 mg Oral Tablet,disintegrating - take 1 tablet ORAL route every 6 to 8 hours as needed for nausea and vomiting; ayesha 20 tablet; Refills: 0, Product Selection Permitted - Colace 100 mg Oral Tablet - take 1 tablet ORAL route every 12 hours; 14 tablet; Refills: 0, Product ayesha Selection Permitted - Flagyl 500 mg Oral Tablet - take 1 tablet ORAL route every 6 hours for 10 days; 40 tablet; Refills: 0, [facility] Product Selection Permitted - Cipro 500 mg Oral tablet - take 1 tablet ORAL route every 12 hours for 10 days; 20 tablet; Refills: 0, [facility] Product Selection Permitted - dicyclomine 20 mg Oral tablet - take 1 tablet ORAL route 4 times per day; 28 tablet; Refills: 0, Product ayesha Selection Permitted Signatures: Dispatcher [employer] EDMS Kuldeep Delgado MD MD cha Peltier, Brian RN RN Bindu Ordoñez RN RN mb9 Corrections: (The following items were deleted from the chart) 12:42 12:41 BASIC METABOLIC PANEL+C.LAB.BRZ ordered. EDMS EDMS 12:42 12:42 CBC+H.LAB.BRZ ordered. EDMS EDMS 12:42 12:42 HEPATIC FUNCTION+C.LAB.BRZ ordered. EDMS EDMS 12:42 12:42 MAGNESIUM+C.LAB.BRZ ordered. EDMS EDMS 12:42 12:42 PROBNP+C.LAB.BRZ ordered. EDMS EDMS 12:42 12:42 PROTIME (+INR)+COAG.LAB.BRZ ordered. EDMS EDMS 12:42 12:42 Troponin High Sensitivity+C.LAB.BRZ ordered. EDMS EDMS 12:42 12:42 Urinalysis+U.LAB.BRZ ordered. EDMS EDMS 12:42 12:42 Chest Single View+RAD.RAD.BRZ ordered. EDMS EDMS 12:42 12:42 Abdomen Pelvis W Con+CT.RAD.BRZ ordered. EDMS EDMS
[2023-09-19 17:28] VITALS: BP 153/84; TEMP 98.2; O2SAT 98
== END 2023-09-19 16:17 | disposition home or self-care (01) ==
LOC: ER 12:34
DX: K57.32 Diverticulitis of large intestine without perforation or abscess without bleeding (principal)
CPT/HCPCS: 85025; 80048; 36415; 83735; 85610; 80076; 81003; 84484; 83880; 74177; 71045; Q9967; J3010; J2405; J0696; J0744; J7030; 93005